=== PATIENT | female | born 1970 | race African-American/Black ===

== ENCOUNTER → 2017-03-04 | Outpatient (CLI) | payer OTHER ==
[2017-03-04 18:32] LABS: ALANINE AMINOTRANSFERASE 20 U/L (9-52); ALBUMIN 4.2 g/dL (3.5-5.0); ALKALINE PHOSPHATASE 67 U/L (38-126); ANION GAP 9 (5-19); ASPARTATE AMINO TRANSFERASE 18 U/L (14-36); BILIRUBIN,DIRECT 0.4 mg/dL (0.0-0.4); BILIRUBIN,TOTAL 0.5 mg/dL (0.2-1.3); BLOOD UREA NITROGEN 16 mg/dL (7-20); CALCIUM 9.8 mg/dL (8.4-10.2); CARBON DIOXIDE 26 mmol/L (22-30); CHLORIDE 107 mmol/L (98-107); CREATININE RESULT 0.92 mg/dL (0.52-1.25); GLUCOSE 84 mg/dL (75-110); POTASSIUM 4.5 mmol/L (3.6-5.0); SODIUM 141.9 mmol/L (137-145); TOTAL PROTEIN 7.3 g/dL (6.3-8.2)
[2017-03-04 19:02] LABS: CARCINOEMBRYONIC ANTIGEN 1.5 ng/mL (<3.0)
[2017-03-06 21:37] LABS: HEPATITIS C QUANTITATION HCV Not Detected IU/mL (.)
== END ==
LOC: OD 16:29
PROVIDERS: ATTEND Specialist
DX: K57.30 Diverticulosis of large intestine without perforation or abscess without bleeding (principal); B18.2 Chronic viral hepatitis C; R10.9 Unspecified abdominal pain; K76.0 Fatty (change of) liver, not elsewhere classified
CPT/HCPCS: 36415; 80053; 82105; 82378; 87522

== ENCOUNTER → 2017-03-13 | Outpatient (CLI) | payer OTHER ==
--- NOTE | 2017-03-13 11:40 | WOMENS IMAGING REPORT ---
EXAM DESCRIPTION: U/S ABDOMEN LIMITED COMPLETED DATE/TIME: 03/13/2017 10:05 am REASON FOR STUDY: UNSPECIFIED ABDOMINAL PAIN; R10.9 K57.30 DVRTCLOS OF LG INT W/O PERFORATION OR AB SCESS W/O BLE COMPARISON: None. TECHNIQUE: Dynamic and static grayscale images acquired of the right upper quadrant and recorded on PACS. Additional selected color Doppler and spectral images recorded. LIMITATIONS: Study limited due to acoustical interference from fat or from air in the bowel. FINDINGS: PANCREAS: Parts of the pancreas poorly seen secondary to acoustical interference from fat or from air in the bowel. LIVER: Echotexture is coarse with increased echogenicity consistent with fatty infiltration. No mass es. LIVER VASCULATURE: Normal directional flow of the main portal vein and hepatic veins. GALLBLADDER: No stones. Normal wall thickness. No pericholecystic fluid. ULTRASOUND-DETECTED IVY'S SIGN: Negative. INTRAHEPATIC DUCTS AND COMMON DUCT: CBD and intrahepatic ducts normal caliber. No filling defects. INFERIOR VENA CAVA: Obscured. AORTA: Obscured. RIGHT KIDNEY: Normal size. Normal echogenicity. No solid or suspicious masses. No hydronephrosis. No calcifications. PERITONEAL CAVITY AND RIGHT PLEURAL SPACE: No ascites or effusions. OTHER: No other significant finding. IMPRESSION: FATTY LIVER. PANCREAS PARTIALLY OBSCURED. OTHERWISE NORMAL RIGHT UPPER QUADRANT ULTRASOU ND. TECHNICAL DOCUMENTATION: JOB ID: [id number] [email or web address]- All Rights Reserved
== END ==
LOC: WI 09:26
PROVIDERS: ATTEND Specialist
DX: K57.30 Diverticulosis of large intestine without perforation or abscess without bleeding (principal)
CPT/HCPCS: 76705

== ENCOUNTER 2017-04-01 09:03 | Day surgery (SDC) | payer OTHER ==
--- NOTE | 2017-03-26 12:39 | HISTORY AND PHYSICAL E ---
History and Physical NAME: KISHORE JOE : 1970 AGE: 46Y ADMITTED: 04/01/2017 ROOM: REFERRING: LA. HISTORY: Patient is 46 and presented with history of fatty liver diverticulosis, abdominal pain, history of choking and dysphagia. SOCIAL HISTORY: Patient quit smoking. She quit using alcohol. ALLERGIES: Negative. SURGERIES: 1. She did have hysterectomy. 2. D and C x3. 3. She has had history of tubal ligation. REVIEW OF SYSTEMS: HEAD, EYES, EARS, NOSE, THROAT: Patient did have hearing loss. RESPIRATORY: CPAP, sleep apnea, asthma. CARDIAC: Hypertension. ENDOCRINE: Borderline diabetes. GASTROINTESTINAL: Diverticulosis, hemorrhoids, fatty liver. ONCOLOGY/HEMATOLOGY: Negative. EXTREMITIES: Torn ACL. FAMILY HISTORY: Her father had cancer of the liver. Her mom is alive. PHYSICAL EXAMINATION: GENERAL: Pleasant, 46 years old. VITAL SIGNS: Blood pressure 145/85, weight 248, temp is 98. HEAD, EYES, EARS, NOSE, THROAT: Normal. ABDOMEN: Soft. NEUROLOGIC: Negative. CONCLUSION: 1. Diverticulosis. 2. Abdominal pain. PLAN: Colonoscopy to be done in the OR. Her lab studies are within normal limits. Chemistry normal MEDICATIONS: 1. Atenolol. 2. . 3. Zyrtec. 4. Patient takes losartan. 5. Cyclosporine eyedrops. 6. She is on fluticasone. 7. She uses CPAP. DICTATING PHYSICIAN: CELESTE MCKEON M.D. [id number] PHY#: [id number] ID: [id number] JOB#: [id number] ACCT: [id number] cc:CELESET MCKEON M.D. >
--- NOTE | 2017-03-30 10:46 | RADIOLOGY REPORT (SQ) ---
EXAM DESCRIPTION: CHEST PA/LATERAL COMPLETED DATE/TIME: 03/30/2017 10:28 am REASON FOR STUDY: PRE OP COMPARISON: None. EXAM PARAMETERS: NUMBER OF VIEWS: two views TECHNIQUE: Digital Frontal and Lateral radiographic views of the chest acquired. RADIATION DOSE: NA LIMITATIONS: none FINDINGS: LUNGS AND PLEURA: No opacities, masses or pneumothorax. No pleural effusion. MEDIASTINUM AND HILAR STRUCTURES: No masses or contour abnormalities. HEART AND VASCULAR STRUCTURES: Heart normal size. No evidence for failure. BONES: No acute findings. Mild thoracic spondylosis. HARDWARE: None in the chest. OTHER: No other significant finding. IMPRESSION: NO SIGNIFICANT RADIOGRAPHIC FINDING IN THE CHEST. TECHNICAL DOCUMENTATION: JOB ID: [id number] [email or web address]- All Rights Reserved
[2017-03-30 11:16] LABS: HEMATOCRIT 38.4 % (36.0-47.0); HEMOGLOBIN 12.6 g/dL (12.0-15.5); HGB HCT DIFFERENCE -0.6; MEAN CORPUSCULAR HGB CONC 32.7 g/dL (32.0-36.0); MEAN CORPUSCULAR VOLUME 79 fl (80-97); RED BLOOD COUNT 4.84 10^6/uL (3.72-5.28); RED CELL DISTRIBUTION WIDTH 14.8 % (11.5-14.0); WHITE BLOOD COUNT 5.1 10^3/uL (4.0-10.5)
[2017-03-30 11:36] LABS: ANION GAP 11 (5-19); BLOOD UREA NITROGEN 13 mg/dL (7-20); CALCIUM 9.6 mg/dL (8.4-10.2); CARBON DIOXIDE 26 mmol/L (22-30); CHLORIDE 104 mmol/L (98-107); CREATININE RESULT 0.83 mg/dL (0.52-1.25); GLUCOSE 92 mg/dL (75-110); POTASSIUM 4.4 mmol/L (3.6-5.0)
--- NOTE | 2017-03-30 12:36 | EKG REPORT ---
SEVERITY:- BORDERLINE ECG - SINUS ARRHYTHMIA, RATE 50-67 BORDERLINE T WAVE ABNORMALITIES : Confirmed by: Leo Gill MD 30-Mar-2017 12:35:32
[~2017-04-01 09:03] MED LIST: LIDOCAINE 0.5% INJ-PF (5 MG/ML) 50 ML SDV INJ PRN; RINGERS SOLUTION,LACTATED 1,000 ML IV PRN
[2017-04-01] MEDS ORDERED: PROPOFOL INJ 200 MG/20 ML VIAL IV ONE (10:36)
[2017-04-01] MEDS ORDERED: MIDAZOLAM 2 MG/2 ML INJ ONE (10:36)
[2017-04-01] MEDS ORDERED: GLUCAGON,HUMAN RECOMB 1 MG INJ ONE (11:35)
[2017-04-01] MEDS ORDERED: MEPERIDINE HCL/PF INJ 25 MG/1 ML DISP.SYRIN IV PRN (11:48)
[2017-04-01] MEDS ORDERED: DIPHENHYDRAMINE HCL 50 MG/ML VIAL IV PRN (11:48)
[2017-04-01] MEDS ORDERED: FENTANYL CITRATE INJ/PF 100 MCG/2 ML AMPUL IV PRN ×3 (11:48)
[2017-04-01] MEDS ORDERED: ONDANSETRON HCL INJ/PF 4 MG/2 ML SDV IV PRN (11:48)
[2017-04-01 14:03] VITALS: BP 140/95
--- NOTE | 2017-04-02 10:21 | DISCHARGE SUMMARY E ---
Discharge Summary NAME: KISHORE JOE : 1970 AGE: 46Y ADMITTED: 04/01/2017 DISCHARGED: 04/01/2017 HISTORY AND HOSPITAL COURSE: The patient is a 46-year-old female who presented with abdominal pain, history of diverticulosis. Colonoscopy done in the OR with Anesthesia standby was successful to the cecum. There was left colon diverticulosis, benign-looking polyp 2 mm in the descending colon removed by biopsy, and external hemorrhoid. DISCHARGE PLAN: Soft low-residue diet for 3 days. Hold aspirin/nonsteroidals for 3 days. Awaiting biopsy result. Follow-up colonoscopy 3 to 5 years. DICTATING PHYSICIAN: CELESTE MCKEON M.D. [id number] PHY#: [id number] ID: [id number] JOB#: [id number] ACCT: [id number] cc:CELESTE MCKEON M.D. >
--- NOTE | 2017-04-02 10:26 | OPERATIVE REPORT E ---
Operative Report NAME: KISHORE JOE : 1970 AGE: 46Y DATE OF SURGERY: 04/01/2017 ROOM: PREOPERATIVE DIAGNOSIS: Colon screening. POSTOPERATIVE DIAGNOSIS: 1. Sigmoid colon diverticulosis. 2. A 2 mm polyp descending colon. OPERATION: Colonoscopy. SURGEON: CELESTE MCKEON M.D. ANESTHESIA: Done in the OR with Anesthesia standby. TISSUE REMOVED OR ALTERED: After biopsy, benign-looking polyp descending colon. HISTORY: The patient is 46, presented to us with diverticulosis, abdominal pain. The patient had x3. She did have hysterectomy, tubal ligation. Today, she underwent a colonoscopy regarding diverticulosis/abdominal pain. Postop showing diverticulosis sigmoid, descending colon benign-looking polyp about 2 mm in size removed by biopsy. RECOMMENDATION: Follow-up colonoscopy after 3 to 5 years. DESCRIPTION OF PROCEDURE: Rectal exam shows external hemorrhoid. Sigmoid/descending colon diverticulosis. There was benign-looking polyp, 2 mm in the descending colon, biopsy obtained. Transverse colon normal. Ascending colon normal. Cecum normal. Scope withdrawn cecum, ascending, transverse, sigmoid, all the way to the rectum. CONCLUSION: 1. Sigmoid/descending colon diverticulosis. 2. Benign-looking polyp 2 mm in the descending colon. PLAN: Hold aspirin/nonsteroidals. Soft low-residue diet. Awaiting biopsy results. Consider colonoscopy followup after 3 to 5 years. DICTATING PHYSICIAN: CELESTE MCKEON M.D. [id number] PHY#: [id number] ID: [id number] JOB#: [id number] ACCT: [id number] cc:CELESTE MCKEON M.D. >
== END 2017-04-01 14:05 | disposition home or self-care (01) ==
LOC: OROUT 09:03
PROVIDERS: ATTEND Specialist
PROC: 0DBM8ZX Excision of Descending Colon, Via Natural or Artificial Opening Endoscopic, Diagnostic (ICD-10-PCS; principal; 2017-04-01 11:00)
DX: K57.30 Diverticulosis of large intestine without perforation or abscess without bleeding (principal); D12.4 Benign neoplasm of descending colon; R73.03 Prediabetes; I10 Essential (primary) hypertension; K76.0 Fatty (change of) liver, not elsewhere classified; Z87.891 Personal history of nicotine dependence
CPT/HCPCS: 45380; 93005; 36415 ×2; 84132; 85027; 80048; 88305 ×2; 71020; 93010; J2250; J1610; J2704; 810